=== PATIENT | female | born 1970 ===

== ENCOUNTER 2022-04-05 11:41 | Emergency (ER) | payer OTHER, SELFPAY ==
[2022-04-05 11:59] VITALS: BP 117/78; PULSE 87; RESP 16; TEMP 36.4; O2SAT 99; BMI 24.2
[2022-04-05 12:26] LABS: Appearance Urine Clear; Color Urine Yellow; Glucose Urine UA Negative (Negative); Leukocyte Esterase Urine Negative (Negative); Nitrite Urine Negative (Negative); PH 6.5 (5.0-9.0); UPreg QC Valid YES; Urine Blood Negative (Negative); Urine Ketones Negative (Negative); Urine Pregnancy NEGATIVE (NEGATIVE); Urine Protein Negative (Neg-Trace)
== END 2022-04-05 13:42 | disposition left against medical advice (07) ==
PROVIDERS: Emergency Provider Emergency Medicine
DX: R30.0 Dysuria (principal); R31.9 Hematuria, unspecified
CPT/HCPCS: 81003; 81025; 99282

== ENCOUNTER 2022-04-18 12:24 | Inpatient (IN) | payer OTHER, SELFPAY ==
[2022-04-18 12:32] VITALS: BMI 27.4
[2022-04-18 12:45] VITALS: BP 136/78; PULSE 86; RESP 16; TEMP 36.7; O2SAT 97
--- NOTE | 2022-04-18 12:47 | ED_ITS ---
HPI - General Adult General Chief complaint: Psychiatric Symptoms <ROLANDO Lawton - Last Filed: 04/18/22 17:51> Stated complaint: SEC 12, HI PER EMS <ROLANDO Lawton - Last Filed: 04/18/22 17:51> Time Seen by Provider: 04/18/22 12:47 <ROLANDO Lawton Last Filed: 04/18/22 17:51> Source: patient and EMS <ROLANDO Lawton Last Filed: 04/18/22 17:51> Mode of arrival: EMS <ROLANDO Lawton Last Filed: 04/18/22 17:51> Limitations: no limitations <ROLANDO Lawton Last Filed: 04/18/22 17:51> History of Present Illness HPI narrative: Patient is a 51 year old assigned female at with no reported medical history presenting to the emergency department today with homicidal ideation. Patient states that she is going to kill someone. Patient denies any thoughts of harming herself. Patient denies any dizziness, lightheadedness, abdominal pain, nausea, vomiting, fever, chills, blurry vision, double vision, loss of vision, chest pain, difficulty breathing, shortness of breath, back pain, night sweats, pain with urination, increased urinary frequency, increased urinary urgency, blood in her urine or stool, syncope or a near syncopal episode, recent trauma or falls, bowel incontinence, bladder incontinence, bowel retention, bladder retention, or any other complaints at this time. <ROLANDO Lawton - Last Filed: 04/18/22 17:51> Severity: moderate <ROLANDO Lawton Last Filed: 04/18/22 17:51> Severity scale (1-10): 5 <ROLANDO Lawton Last Filed: 04/18/22 17:51> Relieving factors: none <ROLANDO Lawton Last Filed: 04/18/22 17:51> Exacerbating factors: none <ROLANDO Lawton Last Filed: 04/18/22 17:51> Associated symptoms: denies other symptoms <ROLANDO Lawton Last Filed: 04/18/22 17:51> Treatments prior to arrival: none <ROLANDO Lawton Last Filed: 04/18/22 17:51> Related Data Home medications: Home Medications Medication Instructions Recorded Confirmed thyroid (pork) 180 mg tablet 180 mg PO DAILY 04/18/22 04/18/22 ([place] Thyroid) <ROLANDO Lawton Last Filed: 04/18/22 17:51> Allergies/adverse reactions: Allergies Allergy/AdvReac Type Severity Reaction Status Date / Time latex Allergy Unknown Verified 04/05/22 11:59 milk Allergy Unknown Verified 04/05/22 11:59 sumatriptan [From Imitrex] Allergy Unknown Verified 04/05/22 11:59 <ROLANDO Lawton Last Filed: 04/18/22 17:51> Review of Systems Constitutional: Constitutional: Reports no additional constitutional complaints, Denies chills, Denies fever(s) and Denies night sweats <ROLANDO Lawton Last Filed: 04/18/22 17:51> Eyes: Eyes: Reports no additional eye complaints, Denies blurry vision, Denies change in vision, Denies diplopia, Denies eye discharge, Denies loss of vision and Denies eye pain <ROLANDO Lawton Last Filed: 04/18/22 17:51> ENT: Denies dizziness <ROLANDO Lawton Last Filed: 04/18/22 17:51> Cardiovascular: Cardiovascular: Reports no additional cardiovascular complaints, Denies chest pain, Denies lightheadedness, Denies Loss of Consciousn ess and Denies dyspnea <ROLANDO Lawton Last Filed: 04/18/22 17:51> Respiratory: Respiratory: Reports no additional respiratory complaints and Denies dyspnea <ROLANDO Lawton Last Filed: 04/18/22 17:51> Gastrointestinal: Gastrointestinal: Reports no additional gastrointestinal complaints, Denies abdominal pain, Denies melena, Denies hematochezia, Denies change in bowel habits and Denies change in stool character <ROLANDO Lawton Last Filed: 04/18/22 17:51> Genitourinary: Genitourinary: Denies hematuria, Denies urinary frequency, D enies dysuria, Denies urinary incontinence, Denies urinary hesitancy and Denies urinary urgency <ROLANDO Lawton Last Filed: 04/18/22 17:51> Musculoskeletal: Musculoskeletal: Reports no additional musculoskeletal complaints, Denies numbness and Denies tingling <ROLANDO Lawton - Last Filed: 04/18/22 17:51> Neurologic: Denies dizziness, Denies loss of vision, Denies numbness and Denies tingling <ROLANDO Lawton - Last Filed: 04/18/22 17:51> Psychiatric: Psychiatric: Reports no additional psychiatric complaints, Reports homicidal ideation and Denies suicidal ideation <ROLANDO Lawton - Last Filed: 04/18/22 17:51> Endocrine: Endocrine: Reports no additional endocrine complaints <ROLANDO Lawton - Last Filed: 04/18/22 17:51> Hematologic/Lymphatic: Hematologic/Lymphatic: Reports no additional hematologic/lymphatic complaints <ROLANDO Lawton - Last Filed: 04/18/22 17:51> Allergic/Immunologic: Allergic/Immunologic: Reports no additional allergic/immunologic complaints <ROLANDO Lawton - Last Filed: 04/18/22 17:51> [facility] Past Medical History Attestation statement: The following information was validated with the patient. <ROLANDO Lawton - Last Filed: 04/18/22 17:51> Source: old records reviewed <ROLANDO Lawton - Last Filed: 04/18/22 17:51> Social History Social History: Social History Advance Directives: No Patient : No <ROLANDO Lawton - Last Filed: 04/18/22 17:51> Physical Exam ED Vital Signs: Vital Signs - 24 hr 04/18/22 12:45 04/19/22 00:24 04/19/22 07:50 Temperature 98.0 F 98.2 F 97.7 F Pulse Rate 86 70 74 Respiratory Rate 16 16 17 Blood Pressure 136/78 134/72 132/84 Pulse Oximetry 97 98 97 Oxygen Delivery Method Room Air Room Air Room Air BMI result Body Mass Index 27.4 <ROLANDO Lawton - Last Filed: 04/18/22 17:51> Vital Signs - 24 hr 04/18/22 12:45 04/19/22 00:24 04/19/22 07:50 Temperature 98.0 F 98.2 F 97.7 F Pulse Rate 86 70 74 Respiratory Rate 16 16 17 Blood Pressure 136/78 134/72 132/84 Pulse Oximetry 97 98 97 Oxygen Delivery Method Room Air Room Air Room Air BMI result Body Mass Index 27.4 <ROLANDO Frazier - Last Filed: 04/18/22 21:56> Vital Signs - 24 hr 04/18/22 12:45 04/19/22 00:24 04/19/22 07:50 Temperature 98.0 F 98.2 F 97.7 F Pulse Rate 86 70 74 Respiratory Rate 16 16 17 Blood Pressure 136/78 134/72 132/84 Pulse Oximetry 97 98 97 Oxygen Delivery Method Room Air Room Air Room Air BMI result Body Mass Index 27.4 <Dawood Gorman MD - Last Filed: 04/19/22 08:11> Const General: cooperative, no acute distress, alert and awake <ROLANDO Lawton - Last Filed: 04/18/22 17:51> Nutritional Appearance: well nourished <ROLANDO Lawton - Last Filed: 04/18/22 17:51> Orientation/consciousness: patient oriented x3 <ROLANDO Lawton - Last Filed: 04/18/22 17:51> Limitations: no limitations <ROLANDO Lawton - Last Filed: 04/18/22 17:51> HENMT Head: Yes normal to inspection and Yes atraumatic <ROLANDO Lawton - Last Filed: 04/18/22 17:51> Ears: hearing grossly normal bilaterally and external ears normal <ROLANDO Lawton - Last Filed: 04/18/22 17:51> General nose exam: Normal external nose present, no nasal discharge noted and no epistaxis <ROLANDO Lawton - Last Filed: 04/18/22 17:51> Face and sinus: Yes normal facial exam, No abrasion and No laceration <ROLANDO Lawton - Last Filed: 04/18/22 17:51> Mouth: Normal oral and palatal mucosa present, no drooling and no muffled voice <ROLANDO Lawton - Last Filed: 04/18/22 17:51> Eyes General: appearance normal, both eyes and all related structures <ROLANDO Lawton - Last Filed: 04/18/22 17:51> Periorbital: periorbital findings normal <Norma Lyon PA - Last Filed: 04/18/22 17:51> Eyelids: Yes eyelids normal <Norma Lyon PA - Last Filed: 04/18/22 17:51> Conjunctivae: conjunctivae normal <Norma Lyon PA - Last Filed: 04/18/22 17:51> Pupils: Equal, round and reactive pupils present <Norma Lyon PA - Last Filed: 04/18/22 17:51> EOM: EOMs intact bilaterally <Norma Lyon PA - Last Filed: 04/18/22 17:51> Neck Neck: Yes normal visual inspection, Yes full ROM and Yes no lymphadenopathy <Norma Lyon PA - Last Filed: 04/18/22 17:51> Chest Chest palpation & inspection: normal inspection of the chest <Norma Lyon AK - Last Filed: 04/18/22 17:51> Resp Effort & Inspection: normal respiratory effort and able to speak in complete sentences <Norma Lyon PA - Last Filed: 04/18/22 17:51> Auscultation: clear to auscultation bilaterally <Norma Lyon PA - Last Filed: 04/18/22 17:51> Cardio Rate: regular rate <Norma Lyon PA - Last Filed: 04/18/22 17:51> Rhythm: regular rhythm <Norma Lyon AK - Last Filed: 04/18/22 17:51> GI Inspection: Yes normal to inspection <Norma Lyon PA - Last Filed: 04/18/22 17:51> Neuro General: patient oriented x3 and moves all extremities <Norma Lyon PA - Last Filed: 04/18/22 17:51> Cranial nerves: Yes Equal, round and reactive pupils present <Norma Lyon PA - Last Filed: 04/18/22 17:51> Cognition (Neuro): normal cognition <Norma Lyon PA - Last Filed: 04/18/22 17:51> Motor exam (neuro): 5/5 motor strength present throughout <Norma Lyon PA - Last Filed: 04/18/22 17:51> Sensory Exam: Normal double simultaneous stimulation for sensation <ROLANDO Lawton - Last Filed: 04/18/22 17:51> Coordination: [id number] test normal <ROLANDO Lawton - Last Filed: 04/18/22 17:51> Extrem General: Yes normal to inspection, Yes full ROM and Yes capillary refill normal <ROLANDO Lawton - Last Filed: 04/18/22 17:51> Psych Appearance: well kempt <ROLANDO Lawton - Last Filed: 04/18/22 17:51> Mental Status: mental status grossly normal <ROLANDO Lawton - Last Filed: 04/18/22 17:51> Affect: normal affect <ROLANDO Lawton - Last Filed: 04/18/22 17:51> Attitude: cooperative <ROLANDO Lawton - Last Filed: 04/18/22 17:51> Thought process: Normal thought process present <ROLANDO Lawton - Last Filed: 04/18/22 17:51> Thought content: suicidality and Homicidality present <ROLANDO Lawton - Last Filed: 04/18/22 17:51> Insight: Good insight present (Psych) <ROLANDO Lawton - Last Filed: 04/18/22 17:51> Course Reevaluation(s) Reevaluation #1: Patient's urine clean without infection. Urine toxicology negative. COVID negative. Patient continues to refuse labs. At this time patient will be placed into observation to allow more time to be evaluated by the behavioral health team. At time observation was started patient common cooperative no acute distress will continue to monitor <ROLANDO Frazier - Last Filed: 04/18/22 21:56> Time: 21:56 <ROLANDO Frazier - Last Filed: 04/18/22 21:56> Reevaluation #2: No event overnight reported by the nurse, medication reconciliation was signed, awaiting for psych admission, stable vital signs, will continue with physician observation. <Dawood Gorman MD - Last Filed: 04/19/22 08:11> Time: 08:10 <Dawood Gorman MD - Last Filed: 04/19/22 08:11> Medical Decision Making MDM Narrative Medical decision making narrative: Patient is a 51 year old assigned female at with no reported medical history presenting to the emergency department today with homicidal ideation. Patient's physical exam showed an uncooperative individual. Patient's blood work is pending. Patient's urine is pending. BHN Evaluation is also pending. Patient signed out to OLIVIA Fragoso. <ROALNDO Lawton - Last Filed: 04/18/22 17:51> Medical Records Medical records reviewed: Yes I reviewed the patient's medical records. <ROLANDO Lawton - Last Filed: 04/18/22 17:51> Lab Data Lab results reviewed: Yes I reviewed the patient's lab results. <ROLANDO Lawton - Last Filed: 04/18/22 17:51> Labs: Lab Results 04/18/22 04/18/22 04/18/22 Range/Units 13:55 17:56 Unknown Urine Color Urine Appearance Urine pH (5.0-9.0) Ur Specific [place] (1.005-1.025) Urine Protein (Neg-Trace) mg/dL Urine Glucose (UA) (Negative) mg/dL Urine Ketones (Negative) mg/dL Urine Blood (Negative) Urine Nitrite (Negative) Ur Leukocyte Esterase (Negative) Urine Test NEGATIVE (NEGATIVE) Urine Opiates Screen Not Detected (Not Detect) Urine Fentanyl Screen Not Detected (Not Detect) Ur Barbiturates Screen Not Detected (Not Detect) Ur Phencyclidine Scrn Not Detected (Not Detect) Ur Amphetamines Screen Not Detected (Not Detect) U Benzodiazepines Scrn Not Detected (Not Detect) Urine Cocaine Screen Not Detected (Not Detect) U Marijuana (THC) Screen Not Detected (Not Detect) COVID-19 (LEI) Negative (Negative) COVID-19 Clin Com See Note 04/18/22 Range/Units Unknown Urine Color Yellow Urine Appearance Clear Urine pH 6.0 (5.0-9.0) Ur Specific [place] 1.020 (1.005-1.025) Urine Protein Negative (Neg-Trace) mg/dL Urine Glucose (UA) Negative (Negative) mg/dL Urine Ketones Negative (Negative) mg/dL Urine Blood Negative (Negative) Urine Nitrite Negative (Negative) Ur Leukocyte Esterase Negative (Negative) Urine Test (NEGATIVE) Urine Opiates Screen (Not Detect) Urine Fentanyl Screen (Not Detect) Ur Barbiturates Screen (Not Detect) Ur Phencyclidine Scrn (Not Detect) Ur Amphetamines Screen (Not Detect) U Benzodiazepines Scrn (Not Detect) Urine Cocaine Screen (Not Detect) U Marijuana (THC) Screen (Not Detect) COVID-19 (LEI) (Negative) COVID-19 Clin Com <ROLANDO Lawton - Last Filed: 04/18/22 17:51> Lab Results 04/18/22 04/18/22 04/18/22 Range/Units 13:55 17:56 Unknown Urine Color Urine Appearance Urine pH (5.0-9.0) Ur Specific [place] (1.005-1.025) Urine Protein (Neg-Trace) mg/dL Urine Glucose (UA) (Negative) mg/dL Urine Ketones (Negative) mg/dL Urine Blood (Negative) Urine Nitrite (Negative) Ur Leukocyte Esterase (Negative) Urine Test NEGATIVE (NEGATIVE) Urine Opiates Screen Not Detected (Not Detect) Urine Fentanyl Screen Not Detected (Not Detect) Ur Barbiturates Screen Not Detected (Not Detect) Ur Phencyclidine Scrn Not Detected (Not Detect) Ur Amphetamines Screen Not Detected (Not Detect) U Benzodiazepines Scrn Not Detected (Not Detect) Urine Cocaine Screen Not Detected (Not Detect) U Marijuana (THC) Screen Not Detected (Not Detect) COVID-19 (LEI) Negative (Negative) COVID-19 Clin Com See Note 04/18/22 Range/Units Unknown Urine Color Yellow Urine Appearance Clear Urine pH 6.0 (5.0-9.0) Ur Specific [place] 1.020 (1.005-1.025) Urine Protein Negative (Neg-Trace) mg/dL Urine Glucose (UA) Negative (Negative) mg/dL Urine Ketones Negative (Negative) mg/dL Urine Blood Negative (Negative) Urine Nitrite Negative (Negative) Ur Leukocyte Esterase Negative (Negative) Urine Test (NEGATIVE) Urine Opiates Screen (Not Detect) Urine Fentanyl Screen (Not Detect) Ur Barbiturates Screen (Not Detect) Ur Phencyclidine Scrn (Not Detect) Ur Amphetamines Screen (Not Detect) U Benzodiazepines Scrn (Not Detect) Urine Cocaine Screen (Not Detect) U Marijuana (THC) Screen (Not Detect) COVID-19 (LEI) (Negative) COVID-19 Clin Com <ROLANDO Frazier - Last Filed: 04/18/22 21:56> Lab Results 04/18/22 04/18/22 04/18/22 Range/Units 13:55 17:56 Unknown Urine Color Urine Appearance Urine pH (5.0-9.0) Ur Specific [place] (1.005-1.025) Urine Protein (Neg-Trace) mg/dL Urine Glucose (UA) (Negative) mg/dL Urine Ketones (Negative) mg/dL Urine Blood (Negative) Urine Nitrite (Negative) Ur Leukocyte Esterase (Negative) Urine Test NEGATIVE (NEGATIVE) Urine Opiates Screen Not Detected (Not Detect) Urine Fentanyl Screen Not Detected (Not Detect) Ur Barbiturates Screen Not Detected (Not Detect) Ur Phencyclidine Scrn Not Detected (Not Detect) Ur Amphetamines Screen Not Detected (Not Detect) U Benzodiazepines Scrn Not Detected (Not Detect) Urine Cocaine Screen Not Detected (Not Detect) U Marijuana (THC) Screen Not Detected (Not Detect) COVID-19 (LEI) Negative (Negative) COVID-19 Clin Com See Note 04/18/22 Range/Units Unknown Urine Color Yellow Urine Appearance Clear Urine pH 6.0 (5.0-9.0) Ur Specific [place] 1.020 (1.005-1.025) Urine Protein Negative (Neg-Trace) mg/dL Urine Glucose (UA) Negative (Negative) mg/dL Urine Ketones Negative (Negative) mg/dL Urine Blood Negative (Negative) Urine Nitrite Negative (Negative) Ur Leukocyte Esterase Negative (Negative) Urine Test (NEGATIVE) Urine Opiates Screen (Not Detect) Urine Fentanyl Screen (Not Detect) Ur Barbiturates Screen (Not Detect) Ur Phencyclidine Scrn (Not Detect) Ur Amphetamines Screen (Not Detect) U Benzodiazepines Scrn (Not Detect) Urine Cocaine Screen (Not Detect) U Marijuana (THC) Screen (Not Detect) COVID-19 (LEI) (Negative) COVID-19 Clin Com <Dawood Gorman MD - Last Filed: 04/19/22 08:11> Critical Care Time Critical Care Time Critical Care Time: No <ROLANDO Frazier - Last Filed: 04/18/22 21:56> Discharge Plan Discharge Clinical Impression: Homicidal ideation <ROLANDO Lawton - Last Filed: 04/18/22 17:51> Patient Disposition: Still a Patient <ROLANDO Lawton - Last Filed: 04/18/22 17:51> Prescriptions: No Action [place] Thyroid 180 mg Tablet 180 mg PO DAILY <ROLANDO Lawton - Last Filed: 04/18/22 17:51> Interventions: [place]-Suicide Risk Severity Scale Last Done: 04/19/22 07:18 <ROLANDO Lawton - Last Filed: 04/18/22 17:51>
--- NOTE | 2022-04-18 14:06 | PC.NURSE ---
bhn to come after 153
[2022-04-18 14:15] LABS: COVID-19 Test Negative (Negative); IDNOW Serial# 16C4AD1C
[2022-04-18 18:14] LABS: Amphetamine Screen Urine Not Detected (Not Detect); Barbiturates, Urine Not Detected (Not Detect); Benzodiazepines Screen Urine Not Detected (Not Detect); Cannabinoid Screen Urine Not Detected (Not Detect); Cocaine Screen Urine Not Detected (Not Detect); Fentanyl, urine Not Detected (Not Detect); Opiate Screen Urine Not Detected (Not Detect); Phencyclidine Screen Urine Not Detected (Not Detect)
--- NOTE | 2022-04-18 18:34 | PC.NURSE ---
Addendum entered by Promise Richardson RN 04/18/22 18:52: report given to JESUS Hall Original Note: report received from JESUS Dan pt apprears asleep resting in the room no signs of acute distress notice close monitoring maintained 1830 BHN by bedside with the pt
[2022-04-18 20:16] LABS: Appearance Urine Clear; Color Urine Yellow; Glucose Urine UA Negative (Negative); Leukocyte Esterase Urine Negative (Negative); Nitrite Urine Negative (Negative); Urine Blood Negative (Negative); Urine Ketones Negative (Negative); Urine Pregnancy NEGATIVE (NEGATIVE); Urine Protein Negative (Neg-Trace)
[2022-04-18 20:17] LABS: UPreg QC Valid YES
--- NOTE | 2022-04-18 23:56 | PC.NURSE ---
t/w attempted to collect labs from the pt, pt is refusing all lab work stating you already got my urine, what more do you need from me? RN AWARE.
[2022-04-19 00:24] VITALS: BP 134/72; PULSE 70; RESP 16; TEMP 36.8; O2SAT 98
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
[2022-04-19 07:50] VITALS: BP 132/84; PULSE 74; RESP 17; TEMP 36.5; O2SAT 97
--- NOTE | 2022-04-19 12:26 | MHC.CARE ---
Pt refused to sign the CV when presented to her. A 12b has been signed and put in her chart.
[2022-04-19 14:00] VITALS: RESP 16
--- NOTE | 2022-04-19 16:48 | HE.PHANOTE ---
Vancomycin Dosing Addendum Patients level came back today at 13.6 mg/L. Down from 15.4 mg/L . patients dose was just decreased by 250mg, therefore I believe the drop is due to the dose decrease. will continue dose of 1250mg at this time to see if level will stabilize. Will monitor kidney function in the morning to ensure dose does not become toxic. Insight suggests decreasing dose to 1000 mg, however a random level will be pulled tomorrow to see if level continues to decrease. next draw 04/20 @1600.
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
[2022-04-20 08:46] VITALS: BP 125/88; PULSE 65; RESP 18; TEMP 36.4
--- NOTE | 2022-04-20 10:59 | PC.NURSE ---
Pt refused lab work 2x this shift.
[2022-04-20] MEDS: Thyroid,Pork 30 MG TABLET 180 MG PO (11:23)
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
--- NOTE | 2022-04-20 14:16 | PC.NURSE ---
pt was highly agitated. yelling at the stove carriage operator that the bathroom was filthy and he didnt know how to do his fucking job . attempted to grab items off the housekeepers cart. needed to be stopped and she was told she could not have the items like the broom to scrub the floor. she was given washcloths and staff sprayed to the toilet, so she could clean it. in [facility] she is doing so,. you nare a fucking dirty cunt if you feel its ok to live like this.
--- NOTE | 2022-04-20 16:39 | PC.NURSE ---
PT is refusing all labs and does not wish to be asked again. Will pass on to next shift.
[2022-04-20 19:34] VITALS: BP 118/82; PULSE 70; RESP 16; TEMP 36.1
[2022-04-21] MEDS: Thyroid,Pork 30 MG TABLET 180 MG PO (05:41)
--- NOTE | 2022-04-21 13:02 | PC.NURSE ---
pt placed on 1:1 status. pt repeatedly calling the police dept to make many complaints and reports that she will not discuss with me. intrusive and instigating arguments with peers and staff. challenging authority and is quite delusional and paranoid. discussing government conspiracies. telling another female pt she is fat and is using vulgar language. pt is hanging out by the unit door and is difficult to redirect. making threats towards unknown person. in your face presentation. refuses to take meds at this time to help with paranoia or anxiety. Dr Hernandes aware. ben Wong aware.
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
[2022-04-21 18:00] VITALS: BP 108/55; PULSE 75; TEMP 36.2; O2SAT 95
--- NOTE | 2022-04-21 19:56 | PC.NURSE ---
pt signed a CV.
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
--- NOTE | 2022-04-22 05:35 | PC.NURSE ---
per dr vallejo, dr arriola signed a 12b on pt on 04/22/22 at 0330 after she ripped her CV apart.
[2022-04-22] MEDS: Thyroid,Pork 30 MG TABLET 180 MG PO (08:03)
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
[2022-04-22] MEDS: Acetaminophen 325 MG TABLET 650 MG PO (20:53)
[2022-04-22] MEDS: HaloperidoL 1 MG TABLET 2 MG PO (20:54)
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
[2022-04-23 07:49] VITALS: BP 104/72; PULSE 90; RESP 16; TEMP 36.7; O2SAT 99
[2022-04-23] MEDS: Thyroid,Pork 30 MG TABLET 180 MG PO (08:16)
[2022-04-23 12:05] LABS: Strep A Nucleic Acid Negative (Negative)
[2022-04-23 12:06] LABS: COVID-19 Test Positive (Negative); IDNOW Serial# 55D5AD1C
[2022-04-23 12:19] LABS: IDNOW Serial# 9DB6401D; Influenza A Negative (Negative); Influenza B2 Negative (Negative)
[2022-04-23] MEDS: HaloperidoL 1 MG TABLET 2 MG PO ×2 (13:39→16:26)
[2022-04-23] MEDS: Acetaminophen 325 MG TABLET 650 MG PO (16:23)
[2022-04-23 16:30] VITALS: BP 127/82; PULSE 97; TEMP 36.3
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
--- NOTE | 2022-04-24 01:16 | PC.NURSE ---
Pt appeared paranoid during an encounter with a peer around 0055. While preparing for a shower, pt appeared to initiate contact with the peer, stating, Excuse me, sir? Do you know me? Do I know you? You don't know me, so you need to stop talking about my gynecological health. Although staff directed the two to part, pt appeared to glare at her peer from [facility].
[2022-04-24] MEDS: Acetaminophen 325 MG TABLET 650 MG PO ×2 (01:23→21:33)
[2022-04-24] MEDS: Thyroid,Pork 30 MG TABLET 180 MG PO (05:34)
[2022-04-24 06:00] VITALS: BP 144/91; PULSE 82; RESP 16; TEMP 37.1; O2SAT 100
[2022-04-24] MEDS: HaloperidoL 1 MG TABLET 2 MG PO ×2 (08:06→17:55)
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
[2022-04-25] MEDS: hydrOXYzine HCL 50 MG TABLET PO (01:29)
[2022-04-25 06:00] VITALS: BP 110/73; PULSE 80; RESP 14; TEMP 36.9; O2SAT 97
[2022-04-25] MEDS: Thyroid,Pork 30 MG TABLET 180 MG PO (06:28)
[2022-04-25] MEDS: Acetaminophen 325 MG TABLET 650 MG PO ×2 (06:32→19:37)
[2022-04-25] MEDS: HaloperidoL 1 MG TABLET 2 MG PO (08:29)
[2022-04-25 18:00] VITALS: BP 115/75; PULSE 94; RESP 18; TEMP 36.4; O2SAT 99
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
[2022-04-25 18:17] LABS: Strep A Nucleic Acid Negative (Negative)
[2022-04-25] MEDS: HaloperidoL 5 MG TABLET PO (22:13)
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
[2022-04-26 09:30] VITALS: BP 115/71; PULSE 96; RESP 18; TEMP 36.6; O2SAT 98
[2022-04-26] MEDS: Thyroid,Pork 30 MG TABLET 180 MG PO (09:41)
[2022-04-26] MEDS: Throat Lozenge, Medicated LOZENGE 1 LOZENGE MUCOUS MEM ×2 (12:12→19:45)
[2022-04-26] MEDS: hydrOXYzine HCL 50 MG TABLET PO (12:12)
[2022-04-26] MEDS: HaloperidoL 1 MG TABLET 2 MG PO (12:12)
[2022-04-26] MEDS: Acetaminophen 325 MG TABLET 650 MG PO (19:46)
[2022-04-27] MEDS: Thyroid,Pork 30 MG TABLET 180 MG PO (08:01)
[2022-04-27] MEDS: HaloperidoL 1 MG TABLET 2 MG PO (09:53)
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
[2022-04-27 13:43] LABS: MANUAL DIFF FLAG NO
[2022-04-27 13:51] LABS: Basophils Percent Auto 0.5 % (0-2); Eosinophils Percent Auto 1.1 % (0-4); Hematocrit 40.1 % (37.0-47.0); Hemoglobin 13.1 g/dl (12.0-16.0); Imm Gran Abs Auto 0.01 X10*3/uL (0.00-0.03); Imm Gran Pct Auto 0.3 % (0.0-0.4); Lymphocytes Absolute Auto 1.1 X10*3/uL (1.2-4.9); Lymphocytes Percent Auto 29.4 % (20-40); Mean Corpuscular HGB Conc 32.7 g/dl (31.0-35.0); Mean Corpuscular Hemoglobin 28.1 pg (27.0-33.0); Mean Corpuscular Volume 86.1 fL (80.0-98.0); Mean Platelet Volume 10.5 fL (9.4-12.3); Monocytes Absolute Auto 0.6 X10*3/uL (0.1-1.2); Monocytes Percent Auto 15.4 % (2-11); Neutrophils Absolute Auto 1.9 x10*3/uL (2.0-8.3); Neutrophils Percent Auto 53.3 % (45-73); Platelet Count 262 X10*3/uL (160-400); Red Blood Count 4.66 X10*6/uL (4.20-5.50); Red Cell Distribution Width 14.1 % (11.0-16.0); White Blood Count 3.6 X10*3/uL (4.8-10.8)
[2022-04-27] MEDS: hydrOXYzine HCL 50 MG TABLET PO (14:45)
[2022-04-27 18:00] VITALS: BP 129/72; PULSE 78; TEMP 36.3; O2SAT 100
--- NOTE | 2022-04-27 22:55 | PC.NURSE ---
pt had a behavior where she was yelling obscenties and slurs at a staff member. pt was redirected back into her room. other pts were upset by her behavior.
[2022-04-28] MEDS: Throat Lozenge, Medicated LOZENGE 1 LOZENGE MUCOUS MEM (00:35)
[2022-04-28 06:00] VITALS: BP 126/85; PULSE 80; RESP 14; TEMP 36.6; O2SAT 100
[2022-04-28] MEDS: Thyroid,Pork 30 MG TABLET 180 MG PO (06:17)
[2022-04-28] MEDS: HaloperidoL 1 MG TABLET 2 MG PO (08:01)
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
== END 2022-04-28 16:00 | disposition home or self-care (01) | DRG 751 ==
LOC: HO.ED 04-19 13:42 → HO.PM5 04-19 15:09
PROVIDERS: Physician Assistant Medical; Psychiatry & Neurology Psychiatry; Admitting Provider Psychiatry & Neurology Psychiatry; Emergency Provider Emergency Medicine Emergency Medical Services; Visit Provider Psychiatry & Neurology Psychiatry
DX: F29 Unspecified psychosis not due to a substance or known physiological condition (principal); U07.1 COVID-19; R45.851 Suicidal ideations; F43.12 Post-traumatic stress disorder, chronic; Z88.8 Allergy status to other drugs, medicaments and biological substances; Z91.040 Latex allergy status; Z79.899 Other long term (current) drug therapy
CPT/HCPCS: 36415; 80307; 81003; 81025; 85025; 87502; 87635; 87651; 99285